=== PATIENT | female | born 1985 | race Caucasian/White ===

== ENCOUNTER 2018-03-17 07:53 | Inpatient (IN) ==
[2018-03-17] MEDS ORDERED: Metoclopramide 10 MG/2 ML VIAL IVP PRN (09:14)
[2018-03-17] MEDS ORDERED: Famotidine 20 MG/2 ML VIAL IVP PRN (09:14)
[2018-03-17] MEDS ORDERED: Naloxone 0.4 MG/ML INJ IVP PRN (09:14)
[2018-03-17] MEDS ORDERED: Ringers Solution, Lactated 1,000 ML IVC SCH (09:15)
[2018-03-17 09:40] LABS: Basophils % 0.2 %; Eosinophils % 0.1 %; Hematocrit 37.1 % (35.3-44.9); Hemoglobin 12.3 g/dL (11.5-15.4); Immature Granulocytes % 0.8 % (0-4); Lymphocytes # 1.6 K/mcL (0.6-4.6); Lymphocytes % 12.7 %; Mean Corpuscular HGB Conc 33.2 g/dL (31.6-35.5); Mean Corpuscular Hemoglobin 29.7 pg (28.0-33.3); Mean Corpuscular Volume 89.6 fL (83.0-100.0); Mean Platelet Volume 9.6 fL (9.4-12.4); Monocytes # 0.6 K/mcL (0.0-1.3); Monocytes % 4.7 %; Neutrophils # 10.5 K/mcL (1.6-8.9); Platelet Count 204 K/mcL (140-400); Red Blood Count 4.14 M/mcL (3.82-4.97); Red Cell Distribution Width 13.9 % (11.5-14.5); Segmented Neutrophils % 81.5 %
[2018-03-17 09:57] LABS: Amphetamine Screen,Urine Negative ng/mL (Cutoff=1000); Barbiturate Screen,Urine Negative ng/mL (Cutoff=200); Benzodiazepines Screen,Urine Negative ng/mL (Cutoff=200); Cannabinoid Screen,Urine Negative ng/mL (Cutoff = 50); Cocaine Screen,Urine Negative ng/mL (Cutoff= 300); Opiate Screen,Urine Negative ng/mL (Cutoff=300); Phencyclidine Screen,Urine Negative ng/mL (Cutoff=25)
[2018-03-17] MEDS: Oxytocin 20 units/ LR 1000 mL 20 UNIT/1,000 ML BAG IVC SCH ×2 (10:07→16:42)
--- NOTE | 2018-03-17 13:29 | OB/GYN History & Physical ---
Date of Encounter: 03/17/18 Time of Encounter: 13:24 Assessment and Plan (1) Encounter for planned induction of labor Current visit: Yes Status: Acute Admit to labor and delivery Pitocin per policy AROM for clear fluid at 1233 Nubain and epidural if desired Anticipate (2) Gestational diabetes Current visit: Yes Status: Acute Qualifiers: Gestational diabetes mellitus control: diet-controlled Trimester: third trimester Qualified Code(s): O24.410 - Gestational diabetes mellitus in , diet controlled History of Present Illness HPI: Ms. Gerber is a 32 year old female 39+0 weeks gestation presents to labor and delivery for induction of labor due to gestational diabetes. care with Dr. Jett. course complicated by maternal obesity, and gestational diabetes controlled by diet. Only significant medical history patient with bipolar diagnosis. Labs: O+, rubella immune, gbs-, all other serologies negative. Past Med Surg Social Fam HX - Past Medical History Source: patient Medical history: other (bipolar) Additional medical history: 3 vaginal deliveries Psychiatric history: bipolar - Social History Smoking Status: Current every day smoker Packs per day: 1 PPD Alcohol use: none Drug use: none - Family History Mother Living Status: Still Living Hx Family Cardiac Disorders: Yes (HTN) Obstetrical History - Pregnancies : 4 Para: 3 Term: 3 : 0 Ab's: 0 Livin Medications and Allergies Calcium Carbonate [Tums] 1,000 mg PO 03/17/18 [History] [id number]/FA/Omega3/Dha/Fish Oil [ Gummies] 1 each PO 03/17/18 [History] Tylenol Cold Max Night Liquid 30 ml PO DAILY 03/17/18 [History] 3 Allergy/AdvReac Type Severity Reaction Status Date / Time No Known Allergies Allergy Verified 03/17/18 09:30 Exam - Vital Signs Vital signs: Initial Vital Signs Temp Pulse Resp BP 97.4 F L 91 18 126/85 03/17/18 08:16 03/17/18 08:16 03/17/18 08:16 03/17/18 08:16 - Constitutional Constitutional: well developed, well nourished, no acute distress, average body habitus - Neck Neck exam: full ROM - Lungs Respiratory exam: CTAB - Cardiovascular Cardiovascular exam: RRR - Abdomen Abdomen: Present: bowel sounds normal, gravid, non tender - Extremities Extremities exam: normal capillary refill, normal inspection - Vagina Vagina: Present: normal moisture - Cervix Dilation: 4 Effacement: 80 Station: -1 Results Result Diagrams: 03/17/18 08:57 Abnormal lab results WBC 12.9 K/mcL (4.3-11.1) H 03/17/18 08:57 Neutrophils # 10.5 K/mcL (1.6-8.9) H 03/17/18 08:57 All other labs normal. - VTE Reasons for not Prescribing Prophylaxis: Treatment not Indicated - Low risk for VTE
[2018-03-17] MEDS ORDERED: *HR* Nalbuphine 10 MG/ML AMPUL IV PRN (14:44)
--- NOTE | 2018-03-17 15:35 | OB/GYN Procedure Note ---
Delivery - Delivery Date: 03/17/18 Provider: Jossie Torres Intrapartum events: none Delivery induction: AROM, oxytocin Delivery monitor: external FHT, external uterine Anesthesia: none Quantitated Blood Loss: 50 - (s) Infant A Delivery Date: 03/17/18 Delivery Time: 15:10 Presentation: vertex Position: OA Route of delivery: Gender: Female Viability: Viable Pounds: 5 Ounces: 5 Weight Gram: 2410 kg at 1 minute: 9 at 5 mins: 9 Shoulder Dystocia: not encountered Specimens collected: cord blood Placenta: spontaneous Cord: 3 umbilical vessels - Repair Episiotomy: none Laceration Description: None - Complications Delivery complications: none Delivery comments: Induction of labor with Pitocin and AROM for gestational diabetes. Patient progressed to complete, maternal bearing down efforts to of liveborn female. While patient was on her hands and knees Vertex delivered OA, shoulders and body easily followed. No nuchal cord or shoulder dystocia encountered. Vigorous infant assisted into mother's arms. Apgars 9/9. Placenta delivered spontaneously, complete (Maxi). Pitocin started per policy, fundus massaged until firm. Perineum intact. EBL 50 - Disposition Mom disposition: stable in LDR disposition: stable in LDR
[2018-03-17] MEDS ORDERED: Oxytocin 20 units/ LR 1000 mL 20 UNIT/1,000 ML BAG IVC SCH (18:10)
[2018-03-17] MEDS ORDERED: Acetaminophen 325 MG TABLET PO PRN (18:10)
[2018-03-17] MEDS ORDERED: Ibuprofen 600 MG TABLET PO PRN (18:10)
[2018-03-17] MEDS ORDERED: Benzocaine/Menthol 56 GM AEROSOL SPRAY TP PRN (18:13)
[2018-03-17] MEDS ORDERED: Lanolin 7 G OINT...G. TP PRN (18:13)
[2018-03-18 04:49] LABS: Basophils % 0.2 %; Eosinophils # 0.1 K/mcL (0.0-0.6); Eosinophils % 0.4 %; Hematocrit 34.1 % (35.3-44.9); Hemoglobin 11.2 g/dL (11.5-15.4); Immature Granulocytes % 1.4 % (0-4); Lymphocytes # 2.1 K/mcL (0.6-4.6); Lymphocytes % 15.3 %; Mean Corpuscular HGB Conc 32.8 g/dL (31.6-35.5); Mean Corpuscular Hemoglobin 29.6 pg (28.0-33.3); Mean Corpuscular Volume 90.2 fL (83.0-100.0); Mean Platelet Volume 9.6 fL (9.4-12.4); Monocytes # 0.6 K/mcL (0.0-1.3); Monocytes % 4.4 %; Neutrophils # 10.5 K/mcL (1.6-8.9); Platelet Count 183 K/mcL (140-400); Red Blood Count 3.78 M/mcL (3.82-4.97); Red Cell Distribution Width 13.7 % (11.5-14.5); Segmented Neutrophils % 78.3 %
[2018-03-18 08:25] VITALS: BP 106/73
[2018-03-18] MEDS ORDERED: Prenatal Vit/FA 1 EACH TABLET PO SCH (09:00)
--- NOTE | 2018-03-18 09:40 | Discharge Summary ---
Date of Encounter: 03/18/18 Time of Encounter: 09:39 - Discharge Diagnosis (1) Vaginal delivery Priority: Primary Status: Acute Comments: Doing well. Ambulating and voiding without difficulty. Tolerating regular diet. Mild cramping, pain well controlled with Ibuprofen. Lochia light and without clots. in arms, states baby bottlefeeding without difficulty. Desires to be discharged today. - Discharge Medications Prescriptions: Ibuprofen [Motrin] 600 mg PO Q6HR PRN #30 tablet PRN Reason: Cramping Docusate [Colace] 100 mg PO BID #20 capsule Home Medications: Calcium Carbonate [Tums] 1,000 mg PO 03/17/18 [History] [id number]/FA/Omega3/Dha/Fish Oil [ Gummies] 1 each PO 03/17/18 [History] Tylenol Cold Max Night Liquid 30 ml PO DAILY 03/17/18 [History] Acetaminophen [Tylenol] 650 mg PO Q6HR PRN tablet 03/18/18 [Rx] Docusate [Colace] 100 mg PO BID #20 capsule 03/18/18 [Rx] Ibuprofen [Motrin] 600 mg PO Q6HR PRN #30 tablet 03/18/18 [Rx] Lanolin [Lansinoh] 1 appl TP TID PRN oint...g. 03/18/18 [Rx] Allergies/Adverse Reactions: 3 Allergy/AdvReac Type Severity Reaction Status Date / Time No Known Allergies Allergy Verified 03/17/18 09:30 Data Procedures and tests throughout hospitalization: Laboratory Tests 03/17/18 03/17/18 03/18/18 08:57 08:57 04:09 WBC 12.9 H 13.4 H RBC 4.14 3.78 L Hgb 12.3 11.2 L Hct 37.1 34.1 L MCV 89.6 90.2 MCH 29.7 29.6 MCHC 33.2 32.8 RDW 13.9 13.7 Plt Count 204 183 MPV 9.6 9.6 Immature Gran % 0.8 1.4 Seg Neutrophils % 81.5 78.3 Lymphocytes % 12.7 15.3 Monocytes % 4.7 4.4 Eosinophils % 0.1 0.4 Basophils % 0.2 0.2 Neutrophils # 10.5 H 10.5 H Lymphocytes # 1.6 2.1 Monocytes # 0.6 0.6 Eosinophils # 0.0 0.1 Basophils # 0.0 0.0 Urine Opiates Screen Negative Ur Barbiturates Screen Negative Ur Phencyclidine Scrn Negative Ur Amphetamines Screen Negative U Benzodiazepines Scrn Negative Urine Cocaine Screen Negative U Marijuana (THC) Screen Negative Labs on day of discharge: Labs from last 24 hours 03/18/18 03/17/18 03/17/18 04:09 08:57 08:57 WBC 13.4 H 12.9 H RBC 3.78 L 4.14 Hgb 11.2 L 12.3 Hct 34.1 L 37.1 MCV 90.2 89.6 MCH 29.6 29.7 MCHC 32.8 33.2 RDW 13.7 13.9 Plt Count 183 204 MPV 9.6 9.6 Immature Gran % 1.4 0.8 Seg Neutrophils % 78.3 81.5 Lymphocytes % 15.3 12.7 Monocytes % 4.4 4.7 Eosinophils % 0.4 0.1 Basophils % 0.2 0.2 Neutrophils # 10.5 H 10.5 H Lymphocytes # 2.1 1.6 Monocytes # 0.6 0.6 Eosinophils # 0.1 0.0 Basophils # 0.0 0.0 Urine Opiates Screen Negative Ur Barbiturates Screen Negative Ur Phencyclidine Scrn Negative Ur Amphetamines Screen Negative U Benzodiazepines Scrn Negative Urine Cocaine Screen Negative U Marijuana (THC) Screen Negative Date of admission: 03/17/18 07:53 Primary care physician: Kathy Chambers CNP Consults: 03/17/18 18:10 Consult to Manager Green [CONS] Routine Comment: Vaginal delivery, consult needed Discharging clinician: Teresa Omalley - Patient Status Disposition: Home, Self-Care Condition: Good Overall status at discharge: patient is progressing back to baseline - Discharge Instructions Follow Up With: Kathy Chambers CNP [Primary Care Provider] - Moi Alvarez [Family Provider] - Jossie Torres CNM [Advanced Practice Nurse] - - Diet and Activity Activity: resume usual activities as tolerated Diet: advance to your usual diet Hospital Course Reason for admission: induction of labor Delivery: Episiotomy: none Laceration: none Other procedures: none complications: none Discharge diagnosis: IUP at term delivered [place] baby: female Time spent discussing smoking cessation with patient: 3 to 10 minutes Time Attestation: Total time spent providing and/or coordinating discharge services: Time Spent: Less than 30 minutes Exam - Constitutional Vitals: Temp Pulse Resp BP Pulse Ox 98.0 F 86 18 106/73 96 03/18/18 08:25 03/18/18 08:25 03/18/18 08:25 03/18/18 08:25 03/18/18 08:25 General appearance IM: cooperative, A&O X 3, pleasant, no acute distress, answers questions appropriately - Respiratory Respiratory exam: Present: CTAB - Cardiovascular Cardiovascular exam IM: Present: RRR - GI/Abdominal GI/Abdominal exam IM: normal bowel sounds - Rectal Rectal exam: deferred - Uterine Tone: Firm Uterus Position: At Umbilicus, Midline - Extremities Exam Extremities exam IM: Present: full ROM, normal inspection, radial pulses palpable and symmetrical - Neurological Exam Neurological exam: alert, normal gait, oriented X3, reflexes normal
== END 2018-03-18 12:30 | disposition home or self-care (01) | DRG 775 ==
LOC: 1NENULAB 07:53 → 1NENUOBS 18:10
PROVIDERS: ADMIT Obstetrics & Gynecology; ATTEND Obstetrics & Gynecology